=== PATIENT | female | born 1970 | race Caucasian/White ===

== ENCOUNTER → 2016-10-29 | Outpatient (CLI) | payer OTHER | END | disposition home or self-care (01) | LOC: MERGE 10:53 → LABWHC1 10:53 | PROVIDERS: ATTEND Nurse Practitioner Acute Care | DX: Z53.9 Procedure and treatment not carried out, unspecified reason (principal) ==

== ENCOUNTER → 2017-01-15 | Outpatient (CLI) | payer OTHER ==
--- NOTE | 2017-01-15 10:04 | MR ---
EXAMINATION TYPE: MR lumbar spine wo con DATE OF EXAM: 01/15/2017 9:33 AM COMPARISON: 06/20/2010 HISTORY: cervicalgia lumbago TECHNIQUE: T1 and T2 axial and sagittal images of the lumbar spine are submitted. FINDINGS: There is no abnormal signal seen within the visualized spinal cord or paraspinal soft tissu es. There appears to be suggestive of potential transitional segment which is again noted from the previo us exam and could be correlated with plain film x-ray. Correlate with the numbering system utilized o n this exam prior to any surgical intervention. At L1-2 there is degenerative disc disease with right paracentral broad-based disc bulging with mild anterior compression of the thecal sac. No Canal stenosis. Neural foramina remain patent. Mild facet arthropathy. At L2-3 there is focal small central disc herniation mild effacement of thecal sac appears stable. Hy pertrophic change of the facets and ligamentum flavum are noted and there is moderate AP canal stenos is. At L3-4 there is moderate facet arthropathy with ligamentum flavum hypertrophy but no disc herniation or canal stenosis. Neural foramina are patent. At L4-5 there is severe degenerative disc disease with discogenic marrow changes. Broad-based central disc bulging with productive facet arthropathy and ligamentum flavum hypertrophy result in mild to m oderate canal stenosis and bilateral foraminal encroachment greater on the right. At L5-S1 there is severe degenerative disc disease. Marked facet arthropathy and ligamentum flavum hy pertrophy are seen with broad-based disc bulging resulting in moderate canal stenosis greater to late ral dimension. Mild bilateral foraminal encroachment. IMPRESSION: 1. Multilevel degenerative disc disease with disc bulging and protrusions result in multilevel canal stenosis which appears stable. 2. Focal central disc herniation L2-L3 remain stable. 3. Correlate with the numbering system utilized prior to any surgical intervention is or may be a tra nsition segment as previously noted. EXAMINATION TYPE: MR cervical spine wo con DATE OF EXAM: 01/15/2017 9:33 AM COMPARISON: 06/20/2010 HISTORY: cervicalgia lumbago TECHNIQUE: T1 sagittal and coronal, T2 sagittal, and gradient echo axial views of the cervical spine are submitted. FINDINGS: The cranial cervical junction is preserved. There is no abnormal signal seen within the sp inal cord or paraspinal soft tissues. Reversal of the normal cervical lordosis. Findings suggestive c urvature of the cervical thoracic spine. Correlate for scoliosis. At C2-3 there is no disc herniation or canal stenosis. No foraminal encroachment. At C3-4 there is no disc herniation or canal stenosis. No foraminal encroachment. At C4-5 there is focal central right paracentral disc herniation appears new results in anterior cont act of the spinal cord but no evidence of displacement. At C5-6 there is broad-based central disc herniation capped by spur with uncovertebral joint hypertro phy results in mild anterior compression of thecal sac, canal stenosis and moderate bilateral foramin al encroachment and appears stable At C6-7 there is no disc herniation or canal stenosis. No foraminal encroachment. At C7-T1 there is no disc herniation or canal stenosis. No foraminal encroachment. IMPRESSION: 1. Interval development of a focal right paracentral disc herniation C4-C5 which abuts the anterior margin the spinal cord without displacement. 2. Disc osteophyte complex C5-C6 with disc protrusion broad-based centrally results in canal stenosis and anterior mild compression of the of the spinal cord. No diagnostic evidence of myelitis.
== END | disposition home or self-care (01) ==
LOC: RADMRIMAIN 08:42 → MERGE 08:45
PROVIDERS: ATTEND Psychiatry & Neurology Neurology
DX: M48.06 Spinal stenosis, lumbar region (principal); M51.36 Other intervertebral disc degeneration, lumbar region; M51.26 Other intervertebral disc displacement, lumbar region; M48.02 Spinal stenosis, cervical region; M50.221 Other cervical disc displacement at C4-C5 level; M25.78 Osteophyte, vertebrae; G95.20 Unspecified cord compression
CPT/HCPCS: 72141; 72148